=== PATIENT | female | born 1945 | race American Indian/Alaskan Native ===

== ENCOUNTER 2018-01-23 13:12 | Outpatient (CLI) | payer OTHER ==
--- NOTE | 2018-01-24 08:52 | Mammography Report ---
BILATERAL MAMMOGRAM: FINDINGS: There are scattered fibroglandular densities (approximately 25%-50% glandular). No mass, distortion, suspicious calcification, or skin change is seen. No significant change when compared to prior exam in August 2014. CAD was utilized. IMPRESSION: Negative mammogram. There is no mammographic evidence of malignancy. RECOMMENDATION: Follow-up per ACS guidelines. BI-RADS CATEGORY: 1 = Negative ACR BI-RADS MAMMOGRAPHIC CODES: 0 = Needs additional imaging evaluation; 1 = Negative; 2 = Benign; 3 = Probably benign; 4 = Suspicious; 5 = Malignant; 6 = Known biopsy-proven malignancy COMMENT: 1. Dense breast tissue, i.e., adenosis, fibrocystic changes, etc., may obscure an underlying neoplasm. 2. Approximately 10% of cancers are not detected with mammography. 3. A negative mammography report should not delay biopsy if a clinically suspicious mass is present. COMMENT: Patient follow-up letters are generated in [employer].
== END 2018-01-23 13:13 | disposition home or self-care (01) ==
LOC: SPVWC 13:12
DX: Z12.31 Encounter for screening mammogram for malignant neoplasm of breast (principal)
CPT/HCPCS: 77067

== ENCOUNTER 2021-12-15 12:46 | Outpatient (CLI) | payer MEDICARE ==
--- NOTE | 2021-12-15 15:49 | Mammography Report ---
DEXA BONE DENSITY SCAN INDICATION / CLINICAL INFORMATION: POSTMENOPAUSAL. 76 years Female COMPARISON: None available. LUMBAR SPINE, L1-L4: - Bone mineral density (BMD) = 1.235 g/cm2. - T-score = 0.8 - Change (%) since most recent prior (if available): None available. RIGHT HIP, NECK : - Bone mineral density (BMD) = 0.931 g/cm2. - T-score = -0.1 - Change (%) since most recent prior (if available): None available. IMPRESSION: 1. WHO Classification: Normal bone density. Fracture Risk: Not Increased. Note: 10-Year Fracture Risk (FRAX) not reported. This DEXA unit lacks FRAX functionality. BMD Reporting Guidelines (ISCD, 2015) BMD Reporting in Postmenopausal Women and in Men Age 50 and Older - T-scores are preferred. - The WHO densitometric classification is applicable. BMD Reporting in Females Prior to Menopause and in Males Younger Than Age 50 - Z-scores, not T-scores, are preferred. This is particularly important in children. - A Z-score of -2.0 or lower is defined as below the expected range for age, and a Z-score above -2.0 is within the expected range for age. - Osteoporosis cannot be diagnosed in men under age 50 on the basis of BMD alone. - The WHO diagnostic criteria may be applied to women in the menopausal transition. http://www.iscd.org/official-positions/8331-oqts-dtxojtzj-positions-adult/ Signer Name: Navi Banks MD Signed: 12/15/2021 3:45 PM Workstation Name: [email or web address]
--- NOTE | 2021-12-16 14:51 | Mammography Report ---
DIGITAL SCREENING MAMMOGRAM WITH CAD, 12/15/2021 CLINICAL INFORMATION / INDICATION: Routine screening mammography. TECHNIQUE: Digital bilateral 2D mammography was obtained in the craniocaudal and mediolateral obliqu e projections. This examination was interpreted with the benefit of Computer-Aided Detection analysis . COMPARISON: 05/26/2020 FINDINGS: Breast Density: There are scattered areas of fibroglandular density. No dominant mass, suspicious calcifications, or architectural distortion in the left breast. There is a new small cluster of calcifications in the right breast at 3:00, middle depth. Magnificati on views are recommended for further evaluation of this new finding. No other significant interval change. IMPRESSION: Recommend right magnification views for new small cluster of calcifications in the right breast at 3:00. Follow up recommendation: Special View: Magnification BI-RADS Category 0: INCOMPLETE. Needs additional imaging evaluation and/or prior mammograms for elvia rison. A "normal" or negative report should not discourage follow up or biopsy of a clinically significant f inding. A written summary of these findings will be mailed to the patient. The patient will be entered into a mammography reporting system which will generate a reminder letter for the patient's next appointmen t at the appropriate interval. The [employer] recommends yearly mammograms starting at age 40 and continuing as l polly as a woman is in good health. Breast MRI is recommended for women with an approximate 20-25% or greater lifetime risk of breast cancer, including women with a strong family history of breast or ova donny cancer or who have been treated for Hodgkin's disease. Signer Name: Connie Virk MD Signed: 12/16/2021 2:47 PM Workstation Name: [email or web address]
== END 2021-12-15 12:47 | disposition home or self-care (01) ==
LOC: SPVWC 12:46
PROVIDERS: ATTEND Internal Medicine
DX: Z12.31 Encounter for screening mammogram for malignant neoplasm of breast (principal); Z78.0 Asymptomatic menopausal state
CPT/HCPCS: 77067; 77080

== ENCOUNTER 2022-02-15 09:48 | Outpatient (CLI) | payer MEDICARE ==
--- NOTE | 2022-02-15 10:32 | Mammography Report ---
DIGITAL DIAGNOSTIC MAMMOGRAM WITH CAD , 02/15/2022 CLINICAL INFORMATION / INDICATION: Abnormal screening mammogram. Screening recall of the right breast for calcifications. TECHNIQUE: Digital right mammographic imaging was performed. Magnification views were obtained. This examination was interpreted with the benefit of Computer-aided Detection analysis. COMPARISON: Screening mammogram, 12/15/2021 and 01/23/2018 and 08/25/2014 FINDINGS: Breast Density: The breasts are heterogeneously dense, which may obscure small masses. Magnification views of the left breast demonstrate a 4 mm cluster of heterogeneous calcifications at the 2-3:00 position middle depth. When allowing for differences in technique, these calcifications re trospectively been unchanged compared to prior mammograms back to 2014. No new or suspicious mammogra phic finding is identified. IMPRESSION: 1. Stable mammographic appearance of right breast calcifications as described which have likely benig n morphology. A six-month follow-up right mammogram with magnification views recommended to confirm t his impression. Follow up recommendation: Short term follow up in 6 months. BI-RADS Category 3: PROBABLY BENIGN. Followup in 6 months. A "normal" or negative report should not discourage follow up or biopsy of a clinically significant f inding. A written summary of these findings will be mailed to the patient. The patient will be entered into a mammography reporting system which will generate a reminder letter for the patient's next appointmen t at the appropriate interval. According to the [employer], yearly mammograms are recommended starting at age 40 and continuing as long as a woman is in good health. Breast MRI is recommended for women with an amaya roximately 20-25% or greater lifetime risk of breast cancer, including women with a strong family his tory of breast or ovarian cancer and women who have been treated for Hodgkin's disease. Signer Name: Betsy Andino MD Signed: 02/15/2022 10:28 AM Workstation Name: [email or web address]
== END 2022-02-15 09:49 | disposition home or self-care (01) ==
LOC: SPVWC 09:48
PROVIDERS: ATTEND Internal Medicine
DX: R92.1 Mammographic calcification found on diagnostic imaging of breast (principal)